=== PATIENT | female | born 1975 | race Caucasian/White ===

== ENCOUNTER → 2018-01-23 | Outpatient (CLI) | payer OTHER ==
[~2018-01-23] MED LIST: BACTRIM; EFFEXOR25 MG; LUTERA1 EACH; PREDNISONE 10 M10 M1 PO
== END ==
LOC: M.RAD 16:10
DX: Z12.31 Encounter for screening mammogram for malignant neoplasm of breast (principal)

== ENCOUNTER → 2018-02-13 | Outpatient (CLI) | payer OTHER | LOC: M.RAD 01-25 09:41 | DX: R92.2 Inconclusive mammogram (principal) ==